=== PATIENT | male | born 1955 | race Caucasian/White ===

== ENCOUNTER 2018-01-17 08:16 | Day surgery (SDC) | payer BC ==
[~2018-01-17 08:16] MED LIST: Lactated Ringers 1,000 ML IV SCH; Sodium Chloride 0.9% 10 ML Syringe FLUSH PRN
[2018-01-17] MEDS ORDERED: Propofol 200 MG/20 ML SDV ONE ×2 (08:53→09:40)
[2018-01-17] MEDS ORDERED: fentaNYL 100 MCG/2 ML SDV ONE (08:53)
--- NOTE | 2018-01-20 08:21 | OR ---
PREOPERATIVE DIAGNOSES: Screening colonoscopy, family history of polyps- brothers x2. POSTOPERATIVE DIAGNOSES: 1. Polyp at splenic flexure removed. 2. Mild sigmoid diverticulosis. PROCEDURE PROPOSED: Total flexible colonoscopy. PROCEDURE DONE: Total flexible colonoscopy with hot snare polypectomy x1. INDICATION: This is a 62-year-old male coming in for his 1st colonoscopic exam. He has a family history of 2 brothers with polyps. He denies any symptomatology. TECHNIQUE: The patient was brought to the endoscopy suite, placed in left lateral decubitus position. He was sedated per PSYCHOLOGY FELLOW with propofol. The flexible video colonoscope was then passed transanally and under visualization advanced to the cecum. Examination revealed normal ascending and transverse colon. In the splenic flexure, there was an adenomatous polyp that was very difficult to get out because it was right behind a fold and right around the corner and it took multiple passes to get it into position where I could snare it, and I was able to get it divided, flushed with the mucosa with the snare, and retrieved with suction. There were 2 small pieces of the polyp that were retrieved and submitted for pathologic examination. The descending colon was unremarkable. The sigmoid colon revealed some mild diverticulosis and the rectum was normal. The scope was then withdrawn. The patient tolerated the procedure well. FINAL IMPRESSION: 1. Splenic flexure polyp x1 removed. 2. Family history of siblings with polyps. 3. Mild sigmoid diverticulosis. PLAN: The patient will be sent a letter with pathology report. I felt that he should continue with colonic surveillance every 5 years hereafter due to his family history and personal history of polyps. SCM: 01/17/2018 10:13:30 MODL: 01/17/2018 17:47:32 /[id number]
--- NOTE | 2018-01-22 11:03 | LETTER ---
01/22/2018 Robby Greg RE: ROBBY PEREZ GREG : 1955 Dear Mr. Banuelos: The polyp removed from your colon was a benign tubular adenoma. There were no worrisome changes within this polyp, but it is considered a precancerous type polyp. I therefore feel that you should continue with colonic surveillance every 5 years hereafter. Respectfully,
== END 2018-01-17 11:20 | disposition home or self-care (01) ==
LOC: VM.SDS 08:16
PROVIDERS: ATTEND Surgery
DX: Z12.11 Encounter for screening for malignant neoplasm of colon (principal); D12.3 Benign neoplasm of transverse colon; K57.30 Diverticulosis of large intestine without perforation or abscess without bleeding; Z83.71 Family history of colonic polyps
CPT/HCPCS: 45385; J2704; J3010; J7120

== ENCOUNTER 2023-09-20 09:25 | Day surgery (SDC) | payer BC, MEDICARE ==
[2023-09-20] MEDS: Lactated Ringers 1,000 ML IV SCH (10:00)
[2023-09-20] MEDS ORDERED: Propofol 200 MG/20 ML SDV ONE (10:43)
[2023-09-20] MEDS ORDERED: Midazolam 1 MG/ML 2 ML SDV ONE (10:44)
[2023-09-20] MEDS ORDERED: fentaNYL 100 MCG/2 ML SDV ONE (10:44)
== END 2023-09-20 12:41 | disposition home or self-care (01) ==
LOC: VM.SDS 09:25
PROVIDERS: ATTEND Student in an Organized Health Care Education/Training Program
DX: Z12.11 Encounter for screening for malignant neoplasm of colon (principal); D12.2 Benign neoplasm of ascending colon; D12.3 Benign neoplasm of transverse colon; I10 Essential (primary) hypertension; H61.23 Impacted cerumen, bilateral
CPT/HCPCS: 00811; J2250; J2704; J3010; J7120